=== PATIENT | male | born 1950 | race African-American/Black ===

== ENCOUNTER 2022-03-02 13:53 | Emergency (ER) | payer OTHER, MEDICAID ==
[~2022-03-02] VITALS: Ht 175.3 cm; Wt 74.4 kg
[2022-03-02 13:53] VITALS: BP_SYST 119
[2022-03-02 15:06] LABS: EOSINOPHILS # (AUTO) 0.2 K/uL (0.0-0.4); LYMPHOCYTES # (AUTO) 1.5 K/uL (1.0-5.5); MEAN CORPUSCULAR HEMOGLOBIN 31 pg (27-31)
[2022-03-02 15:17] LABS: BASOPHILS % (AUTO) 0.5 % (0.0-2.0); EOSINOPHILS % (AUTO) 3.1 % (0.0-4.0); HEMATOCRIT 35.5 % (36-54); HEMOGLOBIN 12.2 g/dL (14.0-18.0); LYMPHOCYTES % (AUTO) 27.3 % (20.5-51.5); MEAN CORPUSCULAR HGB CONC 34 % (32-36); MEAN CORPUSCULAR VOLUME 91 fL (79.0-98.0); MONOCYTES # (AUTO) 0.6 K/uL (0.0-1.0); MONOCYTES % (AUTO) 10.4 % (1.7-9.3); NEUTROPHILS # (AUTO) 3.3 K/uL (1.8-7.7); NEUTROPHILS % (AUTO) 58.7 % (40.0-70.0); PLATELET COUNT (AUTO) 196 K/uL (130-430); RED BLOOD CELL COUNT(AUTO) 3.92 MIL/uL (4.2-6.2); RED CELL DISTRIBUTION WIDTH 13.4 % (9.0-15.0); WHITE BLOOD COUNT (AUTO) 5.6 K/uL (4.8-10.8)
[2022-03-02 16:23] LABS: ALANINE AMINOTRANSFERASE 11 U/L (12-78); ALBUMIN 3.2 g/dL (3.4-4.8); ASPARTATE AMINOTRANSFERASE 17 U/L (10-37); CALCIUM 7.7 mg/dL (8.4-11.0); CREATININE 0.83 mg/dL (0.55-1.30); GFR AFRICAN AMERICAN 118 mL/min (>90); GLUCOSE 103 mg/dL (70-99); TOTAL BILIRUBIN 0.3 mg/dL (0.0-1.0); UREA NITROGEN, BLOOD 21 mg/dL (8-21)
[2022-03-02 16:24] LABS: ACETAMINOPHEN < 1 ug/mL (1-30)
[2022-03-02 16:25] LABS: ALCOHOL, BLOOD < 3 mg/dL (<10)
[2022-03-02 16:39] LABS: CHLORIDE 105 mmol/L (98-107); POTASSIUM 3.8 mmol/L (3.5-5.1); SODIUM SERUM 136 mmol/L (136-145)
[2022-03-02 16:40] LABS: ANION GAP 6 (5-15); CHOLESTEROL 153 mg/dL (<200); HDL CHOLESTEROL 37 mg/dL (>45); LDL CHOLESTEROL 102 mg/dL (<100); TRIGLYCERIDES 75 mg/dL (30-150)
[2022-03-02 18:35] VITALS: BP_SYST 148
== END 2022-03-02 18:35 ==
LOC: SED 13:53
DX: Z04.6 Encounter for general psychiatric examination, requested by authority (principal); J45.909 Unspecified asthma, uncomplicated; R56.9 Unspecified convulsions; Z20.822 Contact with and (suspected) exposure to COVID-19
CPT/HCPCS: 36415; 71045; 80053; 80061; 82550; 83036; 85025; 87081; 87426; 93005; 99285; G0480; G0481; G0482